=== PATIENT | female | born 1995 | race Caucasian/White ===

== ENCOUNTER 2016-10-11 11:08 | Emergency (ER) | payer OTHER ==
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
--- NOTE | 2016-10-11 11:31 | ED CLINICAL REPORT ---
Clinical Report - Physicians/Mid Levels [facility] [address] [place] [address] 10/11/2016 11:08 Patient: WILLI GO Time Seen: 1109; initial patient contact. Arrived- By private vehicle. Historian- patient. HISTORY OF PRESENT ILLNESS Chief Complaint: Injury to the right ring finger and Injury. (ring stuck on finger). The injury happened today. Occurred at home. ( woke up with it). Patient is experiencing mild pain. Patient denies injury to the head or neck. No other injury. ( reports having a metal allergy Patient states that she might have an allergic reaction to this ring. No systemic symptoms described.). REVIEW OF SYSTEMS The patient has had swelling. No weakness or skin laceration. All systems otherwise negative, except as recorded above. PAST HISTORY See nurses notes. Tetanus immunization status is up-to-date. Medications: Vistaril Oral, as needed. Allergies: Amoxicillin. Penicillins. SOCIAL HISTORY Smoker- current status unknown. History of drug use: marijuana. No alcohol use. No recent travel. Is a local resident. ADDITIONAL NOTES The nursing notes have been reviewed. PHYSICAL EXAM Vital Signs: 10/11/2016 11:15 BP: 135/69. HR: 85. RR: 18. O2 saturation: 100%. Temp: 97.5 F. Pain level now: 6/10. Blood pressure normal. Oxygen saturation normal. Appearance: Alert. Oriented X3. No acute distress. Eyes: Pupils equal, round and reactive to light. Eyes normal inspection. CVS: Normal heart rate and rhythm. Heart sounds normal. Pulses normal. Respiratory: No respiratory distress. Breath sounds normal. Chest nontender. Abdomen: No visible injury. Soft and nontender. Bowel sounds normal. Skin: Skin warm and dry. Skin intact. Extremities: (Ring tourniquet on the right ring finger. No erythema. Ring is unable to be removed with gentle traction. No crepitus or no bony abnormalities. Neurovascularly intact.). Extremities otherwise negative. PROGRESS AND PROCEDURES PROCEDURES (The patient was prepped inpositioned in the normal fashion. A ring cutter was used tocut the ring. Pliers were used to grasp the ring on each end of thecut pieces. The ring was stretched open to take enough room for the finger to slide out. Patient tolerated the procedure well. No Complications. Estimated blood loss is not applicable.). 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 No evidence of neurovascular compromise at this time however patient's ring needs emergent removalbecause of potential vascular and neurological compromise if the swelling continues and the ring isleft in place. Patient is agreeable to the removal of the ring. Please see procedure note for further details. Informed verbal consent has been obtained. Ring was successfully removed. Patient reports significant improvement of symptoms while here in the emergency department. No signs of injury orneed for further workup/evaluation. Educated patient on ring tourniquet syndrome and need for proper removal of rings aftersustaining injuryprior to the onset of significant swelling. Discussed with patient her workup here in the emergency department as well as diagnosis, home care, follow-up, return precautions. All questions have been answered. The patient expressed understanding of these instructions and was agreeable to them. CLINICAL IMPRESSION 10/11/2016 11:15 BP: 135/69. HR: 85. RR: 18. O2 saturation: 100%. Temp: 97.5 F. Pain level now: 6/10. Blood pressure normal. Oxygen saturation normal. 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 INSTRUCTIONS Warnings: GENERAL WARNINGS: Return or contact your physician immediately if your condition worsens or changes unexpectedly, if not improving as expected, or if other problems arise. Specifically return if pain, vomiting, bleeding, breathing difficulty or fever. Your Current Medications: CONTINUE TAKING THE FOLLOWING MEDICATIONS: Vistaril Oral : prn. OTC Medications: Acetaminophen (available over the counter): take according to label instructions. Motrin (available over the counter): take according to label instructions. Follow-up: Return to the emergency department as needed. Follow up with your doctor as needed. Screening today revealed the patient's blood pressure to be in the normal range. The patient should follow up with a primary care provider for blood pressure management. Understanding of the discharge instructions verbalized by patient. (Electronically signed by Cameron Neal Dr. 10/17/2016 7:08)
--- NOTE | 2016-10-17 07:08 | ED MAR SUMMARY ---
..... Medication Administration Record [facility] [address] [place], [place] [id number] Patient: WILLI GO Visit ID: [id number] 20y, F Weight: 65.7 kg Height/Length: 108 in BMI: 8.7 ALLERGIES: Amoxicillin, Penicillins
--- NOTE | 2016-10-17 07:08 | ED MAR SUMMARY ---
..... Medication Administration Record [facility] [address] [place], [place] [id number] Patient: WILLI GO Visit ID: [id number] 20y, F Weight: 65.7 kg Height/Length: 108 in BMI: 8.7 ALLERGIES: Amoxicillin, Penicillins
--- NOTE | 2016-10-17 07:08 | ED MED RECONCILIATION SUMMARY ---
Patient: WILLI GO Medication Reconciliation Report [facility] VisitID: [id number] [place] [address] 20y, F Registration Date/Time: 10/11/2016 Weight: 65.7 kg Height/Length: 108 in. BMI: 8.7 ALLERGIES: Amoxicillin, Penicillins The patient's Home Medications are listed below: CONTINUE TAKING THE FOLLOWING MEDICATIONS: Vistaril Oral The source(s) of the original Home Medication information: Not obtained. The following Medications were given to the patient in the Emergency Department: None. The following Medications were prescribed to the patient: Acetaminophen (available over the counter): take according to label instructions. -- Cameron Neal Dr. Motrin (available over the counter): take according to label instructions. -- Cameron Neal Dr.
--- NOTE | 2016-10-17 07:08 | ED DISCHARGE INSTRUCTIONS ---
Patient: WILLI GO General Instructions [facility] VisitID: [id number] [place] [address] 20y, F Registration Date/Time: 10/11/2016 10/11/2016 11:15 BP: 135/69. HR: 85. RR: 18. O2 saturation: 100%. Temp: 97.5 F. Pain level now: 6/10. Blood pressure normal. Oxygen saturation normal. 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 INSTRUCTIONS Warnings: GENERAL WARNINGS: Return or contact your physician immediately if your condition worsens or changes unexpectedly, if not improving as expected, or if other problems arise. Specifically return if pain, vomiting, bleeding, breathing difficulty or fever. Your Current Medications: CONTINUE TAKING THE FOLLOWING MEDICATIONS: Vistaril Oral : prn. OTC Medications: Acetaminophen (available over the counter): take according to label instructions. Motrin (available over the counter): take according to label instructions. Follow-up: Return to the emergency department as needed. Follow up with your doctor as needed. Screening today revealed the patient's blood pressure to be in the normal range. The patient should follow up with a primary care provider for blood pressure management. Understanding of the discharge instructions verbalized by patient. (Electronically signed by Cameron Neal Dr. 10/17/2016 7:08)
--- NOTE | 2016-10-17 07:08 | ED MED RECONCILIATION SUMMARY ---
Patient: WILLI GO Medication Reconciliation Report [facility] VisitID: [id number] [place] [address] 20y, F Registration Date/Time: 10/11/2016 Weight: 65.7 kg Height/Length: 108 in. BMI: 8.7 ALLERGIES: Amoxicillin, Penicillins The patient's Home Medications are listed below: CONTINUE TAKING THE FOLLOWING MEDICATIONS: Vistaril Oral The source(s) of the original Home Medication information: Not obtained. The following Medications were given to the patient in the Emergency Department: None. The following Medications were prescribed to the patient: Acetaminophen (available over the counter): take according to label instructions. -- Cameron Neal Dr. Motrin (available over the counter): take according to label instructions. -- Cameron Neal Dr.
--- NOTE | 2016-10-17 07:08 | ED DISCHARGE INSTRUCTIONS ---
Patient: WILLI GO General Instructions [facility] VisitID: [id number] [place] [address] 20y, F Registration Date/Time: 10/11/2016 10/11/2016 11:15 BP: 135/69. HR: 85. RR: 18. O2 saturation: 100%. Temp: 97.5 F. Pain level now: 6/10. Blood pressure normal. Oxygen saturation normal. 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 INSTRUCTIONS Warnings: GENERAL WARNINGS: Return or contact your physician immediately if your condition worsens or changes unexpectedly, if not improving as expected, or if other problems arise. Specifically return if pain, vomiting, bleeding, breathing difficulty or fever. Your Current Medications: CONTINUE TAKING THE FOLLOWING MEDICATIONS: Vistaril Oral : prn. OTC Medications: Acetaminophen (available over the counter): take according to label instructions. Motrin (available over the counter): take according to label instructions. Follow-up: Return to the emergency department as needed. Follow up with your doctor as needed. Screening today revealed the patient's blood pressure to be in the normal range. The patient should follow up with a primary care provider for blood pressure management. Understanding of the discharge instructions verbalized by patient. (Electronically signed by Cameron Neal Dr. 10/17/2016 7:08)
== END 2016-10-11 11:48 | disposition home or self-care (01) ==
LOC: ED SRH 11:08
DX: S60.444A External constriction of right ring finger, initial encounter (principal); W49.04XA Ring or other jewelry causing external constriction, initial encounter; Z88.0 Allergy status to penicillin